=== PATIENT | female | born 1960 | race Caucasian/White ===

== ENCOUNTER → 2023-04-01 12:18 | Outpatient (REF) | payer OTHER, SELFPAY | LOC: RAD 12:18 | PROVIDERS: ATTENDING PHYSICIAN Physician Assistant | DX: S69.91XA Unspecified injury of right wrist, hand and finger(s), initial encounter (principal) | CPT/HCPCS: 73140 ==

== ENCOUNTER → 2023-06-17 07:56 | Outpatient (REF) | payer OTHER, SELFPAY | LOC: RAD 07:56 | PROVIDERS: ATTENDING PHYSICIAN Otolaryngology; FAMILY PHYSICIAN Family Medicine | DX: J34.2 Deviated nasal septum (principal); J32.2 Chronic ethmoidal sinusitis | CPT/HCPCS: 70486 ==

== ENCOUNTER → 2023-07-22 11:11 | Outpatient (REF) | payer OTHER, SELFPAY | LOC: DHCBC/DCA 11:11 | PROVIDERS: ATTENDING PHYSICIAN Internal Medicine Cardiovascular Disease; FAMILY PHYSICIAN Family Medicine | DX: R06.09 Other forms of dyspnea (principal) | CPT/HCPCS: 78452; 93017; A9500; J2785 ==

== ENCOUNTER → 2023-07-28 07:16 | Outpatient (REF) | payer OTHER, SELFPAY | LOC: HWRCS 07:16 | PROVIDERS: ATTENDING PHYSICIAN Internal Medicine Cardiovascular Disease; FAMILY PHYSICIAN Family Medicine | DX: R06.09 Other forms of dyspnea (principal); I37.0 Nonrheumatic pulmonary valve stenosis; I37.1 Nonrheumatic pulmonary valve insufficiency; I36.1 Nonrheumatic tricuspid (valve) insufficiency | CPT/HCPCS: 93306 ==

== ENCOUNTER → 2023-08-10 07:54 | Day surgery (SDC) | payer OTHER, SELFPAY ==
[2023-07-29 06:50] VITALS: BMI 30.9
--- NOTE | 2023-07-29 07:40 | HPS.HSE ---
Family Physician
<Marii Zhao PA-C - Last Filed: 07/29/23 08:03>
-
Family Physician: NO INTERVIEW UNKNOWN
Chief Complaint
<Marii Zhao PA-C - Last Filed: 07/29/23 08:03>
-
Abnormal nuclear stress test. Dyspnea on exertion. Palpitations.
History of Present Illness
The patient is a 63 year old female presenting today for new onset dyspnea on exertion, palpitations, and central chest pressure. She notes that these symptoms have been ongoing over the past few months and only occur with exertion, such
as walking long distances or biking. A pharmacologic stress test was ordered to evaluate for potential ischemia. Her nuclear stress test on 07/22/2023 revealed a small area of moderate decreased perfusion in the apical lateral segment, consistent
with ischemia, and a small to moderate area of moderately decreased perfusion that is partially reversible in the mid to basal inferolateral segment, consistent with possible area of infarct and ischemia. Her ejection fraction was also noted to be
moderately reduced at 43%. Given this result, it is recommended she proceed with a right and left cardiac catheterization for further symptom work-up. She denies any current complaints today such as chest pain or shortness of breath at rest, nausea,
vomiting, diarrhea, lightheadedness, dizziness, cough, sore throat, or fever.
Medical History
<Marii Zhao PA-C - Last Filed: 07/29/23 08:03>
Past Medical History
Past Medical History: Reports Other
Additional Past Medical History:
1. Abnormal nuclear stress test.
2. Dyspnea on exertion with associated central chest pressure.
3. Palpitations.
4. Hyperlipidemia.
5. Paroxysmal atrial tachycardia.
6. Sinus bradycardia, asymptomatic.
7. Pulmonic stenosis and atrial septal defect, status post childhood repair.
8. Severe tricuspid regurgitation.
9. Mild pulmonic regurgitation.
10. Venous varicosities, status post ablation of right greater saphenous vein.
11. Colon polyp.
12. Diverticulosis.
13. Osteoarthritis, status post right total knee arthroplasty, 2018, and left total knee arthroplasty, 2019.
14. Chronic sinusitis.
15. Eczema, on Adbry.
16. Obesity, BMI 30.9.
17. Remote history of tobacco abuse.
Past Surgical History: Reports Other
Additional Past Surgical History:
1. Right total knee arthroplasty.
2. Left total knee arthroplasty.
3. Knee ligament repair.
4. Bilateral thumb joint replacements.
5. Ablation of right greater saphenous vein.
6. Colonoscopy x2.
Social History
Tobacco: Former Smoker (She is a former 'on again, off again' less than 1 pack per day cigarette smoker who quit tobacco altogether in 1999. )
Alcohol: Other (Social)
Living: Alone (in a 2 story home. )
Family History
Family History: Not pertinent
Allergies / Home Medications
Allergy/Medication List:
Home medications:
1. Aspirin 81 mg p.o. daily.
2. Cetirizine 10 mg p.o. at bedtime.
3. Fexofenadine 180 mg p.o. daily.
4. Ibuprofen 400-600 mg p.o. every 6 hours as needed.
5. Adbry 300 mg subcutaneous every 2 weeks.
Allergies: No known allergies.
Review of Systems
<Marii Zhao PA-C - Last Filed: 07/29/23 08:03>
-
A 12 point ROS was completed and negative except as noted: Yes
Physical Exam
<Marii Zhao PA-C - Last Filed: 07/29/23 08:03>
Vital Signs
Blood pressure 118/73. Heart rate 49. Respirations 18. Pulse ox 98% on room air.
Height 5 feet, 5 inches. Weight 84.3 kg. BMI 30.9.
Physical Exam
General: Well Developed, Well Nourished and No Apparent Distress
HEENT: NormoCephalic, Moist mucous membranes, Atraumatic and PERRLA
Respiratory: Clear
Cardiac: Bradycardia and Murmur
GI: Soft, Non Tender, Non Distended and Other (Obese. )
Musculoskeletal: No Edema and Normal Gait & Station
Skin: Warm, Dry and Other (Circular eczema lesions without drainage noted on bilateral lower extremities. )
Neuro: AO x 3 and Nonfocal/grossly intact
Laboratory Results
<Marii Zhao PA-C - Last Filed: 07/29/23 08:03>
-
EKG 07/29/2023: Sinus bradycardia. Cannot rule out anterior infarct, age undetermined. Prolonged QT.
Echocardiogram 07/28/2023: Normal left ventricular size, wall thickness and systolic function. LV ejection fraction is 55-60% by Ascencio's method of discs. Dilated RV with normal systolic function. Severely dilated right atrium. Severe tricuspid
regurgitation. Estimated pulmonary artery pressure at 58 mmHg. Assuming a right atrial pressure of 15 mmHg. Mild pulmonic regurgitation with a peak gradient of 10 mmHg. Compared to prior from November 13, 2021, tricuspid regurgitation is now
severe with estimated PASP of 58 mmHg. The patient is status post pulmonic stenosis and ASD repair as a child.
Impression/Plan
<Marii Zhao PA-C - Last Filed: 07/29/23 08:03>
-
IMPRESSION/PLAN:
1. Dyspnea on exertion, palpitations, and abnormal nuclear stress test: The patient is in need of a right and left cardiac catheterization with Dr. Migue Cooper on 08/10/2023. The benefits and risks of the procedure have been explained to the
patient. The patient understands these risks and wishes to proceed. She is aware to continue her daily baby Aspirin up to and including the morning of her procedure.
<Migue Cooper DO - Last Filed: 08/10/23 10:48>
-
IMPRESSION/PLAN:
1. Dyspnea on exertion, palpitations, and abnormal nuclear stress test: The patient is in need of a right and left cardiac catheterization with Dr. Migue Cooper on 08/10/2023. The benefits and risks of the procedure have been explained to the
patient. The patient understands these risks and wishes to proceed. She is aware to continue her daily baby Aspirin up to and including the morning of her procedure.
Attestation: I have seen and examined the patient. I can confirm Ms. Zhao's findings and I agree with her assessment and plan as documented.
63-year-old female with a history of ASD in pulmonic stenosis status post childhood repair. She has been evaluated as an outpatient for dyspnea on exertion and central chest pressure. Evaluation included an echocardiogram as well as a
pharmacologic SPECT. Echocardiogram shows dilated right ventricle with normal function and severely dilated right atrium with severe tricuspid regurgitation as well as some pulmonic disease. Her SPECT showed anterolateral ischemia. Given the
nebulous nature of her symptoms as well as multiple potential sources, the decision was made to proceed with right and left heart catheterization.
Risks and benefits of the procedure have been explained to the patient. Consent is signed and on the chart.
[2023-08-10] VITALS (10 sets, daily range): BP systolic 110–144; BP diastolic 71–95; BMI 29.6
[2023-08-10] MEDS: NSS 249 ML IV (08:47)
[2023-08-10] MEDS: NSS 1000 IV (12:33)
--- NOTE | 2023-08-10 15:19 | ITS.CL.CATH ---
Tag Writer - Catheterization
Cardiac Catheterization
Procedure Report:
CARDIAC CATHETERIZATION REPORT
Date of Procedure: 08/10/2023
Referring: Migue Cooper D.O.
Indication: Chest pressure, abnormal stress test, history of ASD/pulmonic stenosis repair as a child.
PROCEDURE:
1. Right heart catheterization.
2. Left heart catheterization.
3. Coronary angiography.
4. Pulmonic valve interrogation.
ACCESS:
6 Cymraes right radial artery.
5 Cymraes right antecubital vein.
CATHETERS:
1. 5 Cymraes balloon wedge.
2. 5 Cymraes JL 3.5.
3. 5 Cymraes JR4.
HEMODYNAMIC DATA
Weight (kg): 83.0
AO (s/d/x mmHg): 114/71/90
LV (s/x mmHg): 114/14
PCWP (a/v/x mmHg): 16/15/14
PA (s/d/x mmHg): 40//23
RV (s/x mmHg): 47/12
RA (a/v/x mmHg): /
SVC SvO2 (%): 63.8
PA SvO2 (%): 66.3
SaO2 (%): 92.7
Hbg (g/dL): 13.7
CO (L/min): 3.52
CI (L/min/m2): 1.82
TPG (mmHg): 9
PVR (Carrillo Units): 2.56
SVR (dynes*seconds*cm^-5): 1773
AVO2 Diff (Volume %): 4.92
AV gradient (x, mmHg): None.
AV area (cm2): Normal.
PV gradient (x, mmHg): 5
PV area (cm2): 1.90
LEFT VENTRICULOGRAPHY: Not performed.
CORONARY ANGIOGRAPHY
Dominance: Right.
Left Main: Normal size, bifurcating vessel. There is no coronary artery disease.
LAD: Normal size vessel giving rise to 1 large diagonal. 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 The distal LAD is supplied by retrograde left to left collaterals and is a
relatively small vessel, though likely underfilled given its chronic status.
Ramus: Congenitally absent.
Circumflex: Normal size, nondominant vessel giving rise to 2 obtuse marginals. OM1 is a small, vestigial vessel, less than 1 mm. OM 2 is a substantial vessel which subsequently bifurcates into 2 daughter branches and supplies the majority of the
inferolateral wall. There is a 70% lesion in the proximal margin of OM 2.
RCA: Large size, dominant vessel. There is a 90% lesion in the mid RCA. There is a 50% lesion in the middle third of the RPDA.
INTERVENTIONS
None
Closure Device: Vascular band for the right radial artery, manual pressure for the right antecubital vein.
Radiation dose (mGy): 392.28
DAP (cm2.Gy): 25.4268
Fluoroscopy time (minutes): 6.1
Sedation time (minutes): 15
CONCLUSIONS:
1. Right dominant circulation with a 90% lesion in the mid RCA, a 50% lesion in the mid third of the RPDA, a chronically totally occluded mid LAD and a 70% lesion in the proximal margin of OM 2.
2. History of ASD repair and pulmonic stenosis repair as a child with mild pulmonic stenosis.
3. Severe tricuspid regurgitation on echocardiogram.
4. Top normal to mildly elevated filling pressures (LVEDP = 14 mmHg, PCWP = 14 mmHg at 83.0 kg).
RECOMMENDATIONS:
1. Expectant management after cardiac catheterization via right radial/antecubital approach.
2. Limited weight bearing on the right wrist for one week.
3. Discussion with CT surgery regarding optimal revascularization strategy, especially given her concomitant RV enlargement and severe tricuspid valve regurgitation.
4. Outpatient transesophageal echocardiogram.
5. Cardiac MRI has been ordered.
6. Start metoprolol 25 mg daily.
7. Start atorvastatin 40 mg daily. Goal LDL <55.
8. Start aspirin 81 mg daily.
9. Start sublingual nitroglycerin as needed.
Copy to: Migue Cooper D.O., Jacinto Krueger M.D.
Migue Cooper DO, FACC, FACP
== END | disposition home or self-care (01) ==
LOC: CATH 07:54
PROVIDERS: ATTENDING PHYSICIAN Internal Medicine Cardiovascular Disease; FAMILY PHYSICIAN Family Medicine
DX: I25.10 Atherosclerotic heart disease of native coronary artery without angina pectoris (principal); I25.82 Chronic total occlusion of coronary artery; R07.89 Other chest pain; R06.09 Other forms of dyspnea; R00.2 Palpitations; E78.5 Hyperlipidemia, unspecified; I47.19 Other supraventricular tachycardia; R00.1 Bradycardia, unspecified; I07.1 Rheumatic tricuspid insufficiency; I08.8 Other rheumatic multiple valve diseases; Z98.890 Other specified postprocedural states; Z87.19 Personal history of other diseases of the digestive system; K57.90 Diverticulosis of intestine, part unspecified, without perforation or abscess without bleeding; J32.9 Chronic sinusitis, unspecified; Z87.74 Personal history of (corrected) congenital malformations of heart and circulatory system; E66.9 Obesity, unspecified; Z68.30 Body mass index [BMI] 30.0-30.9, adult; R94.39 Abnormal result of other cardiovascular function study; Z96.653 Presence of artificial knee joint, bilateral; L30.9 Dermatitis, unspecified; Z87.891 Personal history of nicotine dependence; Z79.82 Long term (current) use of aspirin; M19.90 Unspecified osteoarthritis, unspecified site; I37.0 Nonrheumatic pulmonary valve stenosis
CPT/HCPCS: 93460; C1894; Q9967

== ENCOUNTER → 2023-08-16 12:54 | Outpatient (REF) | payer OTHER, SELFPAY | LOC: RSP 12:54 | PROVIDERS: ATTENDING PHYSICIAN Internal Medicine Cardiovascular Disease; FAMILY PHYSICIAN Family Medicine | DX: R06.09 Other forms of dyspnea (principal); Z87.891 Personal history of nicotine dependence | CPT/HCPCS: 94727; 94729; 88738; 94010 ==

== ENCOUNTER → 2023-08-23 07:21 | Outpatient (REF) | payer OTHER, SELFPAY | LOC: RAD 07:21 | PROVIDERS: FAMILY PHYSICIAN Family Medicine | DX: I25.10 Atherosclerotic heart disease of native coronary artery without angina pectoris (principal) | CPT/HCPCS: 71250 ==

== ENCOUNTER → 2023-10-21 11:44 | Outpatient (REF) | payer OTHER, SELFPAY | LOC: RAD 11:44 | PROVIDERS: ATTENDING PHYSICIAN Nurse Practitioner Acute Care; FAMILY PHYSICIAN Family Medicine; REFERRING PHYSICIAN Internal Medicine Cardiovascular Disease | DX: Z95.1 Presence of aortocoronary bypass graft (principal) | CPT/HCPCS: 71046 ==

== ENCOUNTER → 2023-10-28 10:11 | Outpatient (REF) | payer OTHER, SELFPAY ==
[2023-10-28 10:37] VITALS: BP 128/86; BP_SYST 67
[2023-10-28 11:30] VITALS: BP 109/66; BP_SYST 64
[2023-10-28 11:35] VITALS: BP 105/69; BP_SYST 63
[2023-10-28 11:49] VITALS: BP 105/69
== END ==
LOC: RADI 10:11
PROVIDERS: ATTENDING PHYSICIAN Internal Medicine Cardiovascular Disease; FAMILY PHYSICIAN Family Medicine
DX: J90 Pleural effusion, not elsewhere classified (principal)
CPT/HCPCS: 32555; 71045

== ENCOUNTER → 2023-11-04 11:27 | Outpatient (REF) | payer OTHER, SELFPAY ==
[2023-11-04 13:20] VITALS: BP 131/73; BP_SYST 60
[2023-11-04 14:15] VITALS: BP 96/62; BP_SYST 62
[2023-11-04 14:30] VITALS: BP 97/68; BP_SYST 60
[2023-11-04 14:45] VITALS: BP 112/64; BP_SYST 62
[2023-11-04 15:00] LABS: Body Fluid Albumin 2.2 g/dl; Body Fluid Hematocrit 0.3 %; Body Fluid LDH 355 U/L; Body Fluid Protein 3.6 g/dl; Body Fluid Triglycerides 32 mg/dl
[2023-11-04 15:14] LABS: Body Fluid WBC 840 /CUMM
[2023-11-04 15:16] LABS: Body Fluid Second Tech FB
[2023-11-04 15:20] VITALS: BP 112/64
== END ==
LOC: RADI 11:27
PROVIDERS: ATTENDING PHYSICIAN Internal Medicine Cardiovascular Disease; FAMILY PHYSICIAN Family Medicine
DX: J90 Pleural effusion, not elsewhere classified (principal); R06.02 Shortness of breath; J98.19 Other pulmonary collapse; J98.11 Atelectasis
CPT/HCPCS: 88305; 32555; 71046; 71260; 82042; 83615; 84157; 84478; 85014; 87015; 87070; 87102; 87116; 87205; 87206; 88112; 89051; Q9967

== ENCOUNTER → 2023-11-07 09:39 | Outpatient (REF) | payer OTHER, SELFPAY | LOC: RAD 09:39 | PROVIDERS: ATTENDING PHYSICIAN Internal Medicine Cardiovascular Disease; FAMILY PHYSICIAN Family Medicine | DX: R60.0 Localized edema (principal) | CPT/HCPCS: 93970 ==

== ENCOUNTER → 2023-11-29 07:56 | Outpatient (REF) | payer OTHER, SELFPAY | LOC: RAD 07:56 | PROVIDERS: ATTENDING PHYSICIAN Internal Medicine Cardiovascular Disease; FAMILY PHYSICIAN Family Medicine | DX: R06.09 Other forms of dyspnea (principal) | CPT/HCPCS: 71046 ==

== ENCOUNTER → 2023-12-01 13:09 | Outpatient (REF) | payer OTHER, SELFPAY ==
[2023-12-01 13:45] VITALS: BP 120/74; BP_SYST 56
[2023-12-01 15:22] LABS: Body Fluid Amylase 38 U/L; Body Fluid Glucose 107 mg/dl; Body Fluid LDH 187 U/L; Body Fluid Protein 4.1 g/dl
[2023-12-01 15:23] LABS: Body Fluid Hematocrit < 1.0 %; Body Fluid Mononuclear 96.1 %; Body Fluid Polymorphonuclear 3.9 %; Body Fluid WBC 717 /CUMM
[2023-12-01 15:24] LABS: Body Fluid Triglycerides < 30 mg/dl
[2023-12-01 15:40] LABS: Body Fluid Second Tech DW
== END ==
LOC: RADI 13:09
PROVIDERS: ATTENDING PHYSICIAN Internal Medicine Cardiovascular Disease; FAMILY PHYSICIAN Family Medicine
DX: J90 Pleural effusion, not elsewhere classified (principal)
CPT/HCPCS: 32555; 71045; 82150; 82945; 83615; 83986; 84157; 84478; 85014; 87015; 87070; 87102; 87116; 87205; 87206; 89051

== ENCOUNTER → 2023-12-20 12:07 | Outpatient (REF) | payer OTHER, SELFPAY | LOC: RAD 12:07 | PROVIDERS: ATTENDING PHYSICIAN Internal Medicine Cardiovascular Disease; FAMILY PHYSICIAN Family Medicine | DX: J90 Pleural effusion, not elsewhere classified (principal) | CPT/HCPCS: 71046 ==

== ENCOUNTER 2023-12-21 16:32 | Outpatient (RCR) | payer OTHER, SELFPAY | END 2023-12-21 23:59 | disposition home or self-care (01) | LOC: CRHB 16:32 | PROVIDERS: ATTENDING PHYSICIAN Internal Medicine Cardiovascular Disease; FAMILY PHYSICIAN Family Medicine | DX: I25.10 Atherosclerotic heart disease of native coronary artery without angina pectoris (principal); Z95.1 Presence of aortocoronary bypass graft; Z95.4 Presence of other heart-valve replacement | CPT/HCPCS: 93797; 93798 ==

== ENCOUNTER → 2024-01-04 07:17 | Outpatient (REF) | payer OTHER, SELFPAY | LOC: HWRCS 07:17 | PROVIDERS: ATTENDING PHYSICIAN Internal Medicine Cardiovascular Disease; FAMILY PHYSICIAN Family Medicine | DX: R06.09 Other forms of dyspnea (principal); I37.0 Nonrheumatic pulmonary valve stenosis; I37.1 Nonrheumatic pulmonary valve insufficiency; I36.1 Nonrheumatic tricuspid (valve) insufficiency; R00.2 Palpitations | CPT/HCPCS: 93306 ==

== ENCOUNTER 2024-01-16 16:28 | Outpatient (RCR) | payer OTHER, SELFPAY | END 2024-01-16 23:59 | disposition home or self-care (01) | LOC: CRHB 16:28 | PROVIDERS: ATTENDING PHYSICIAN Internal Medicine Cardiovascular Disease; FAMILY PHYSICIAN Family Medicine | DX: Z95.1 Presence of aortocoronary bypass graft (principal); Z95.4 Presence of other heart-valve replacement | CPT/HCPCS: 93797; 93798 ==

== ENCOUNTER → 2024-02-02 19:03 | Outpatient (REF) | payer OTHER, SELFPAY | LOC: WDC 19:03 | PROVIDERS: ATTENDING PHYSICIAN Obstetrics & Gynecology | DX: Z12.31 Encounter for screening mammogram for malignant neoplasm of breast (principal) | CPT/HCPCS: 77063; 77067 ==

== ENCOUNTER 2024-02-08 16:26 | Outpatient (RCR) | payer OTHER, SELFPAY ==
[2024-01-23 10:26] LABS: HDL Cholesterol 83 mg/dl; LDL Cholesterol, Calculated 59 mg/dl; Total Cholesterol 167 mg/dl (50-199); Triglyceride 126 mg/dl (10-149); Very Low Density Lipoprotein 25 mg/dl (0-30)
== END 2024-02-08 23:59 | disposition home or self-care (01) ==
LOC: CRHB 16:26
PROVIDERS: ATTENDING PHYSICIAN Internal Medicine Cardiovascular Disease; FAMILY PHYSICIAN Family Medicine
DX: Z95.1 Presence of aortocoronary bypass graft (principal); I25.10 Atherosclerotic heart disease of native coronary artery without angina pectoris (principal); Z95.4 Presence of other heart-valve replacement
CPT/HCPCS: 80061; 93797; 93798

== ENCOUNTER 2024-08-27 06:23 | Day surgery (SDC) | payer OTHER, SELFPAY ==
[2024-08-27] VITALS (7 sets, daily range): BP systolic 121–137; BP diastolic 65–76; BMI 29.1
[2024-08-27] MEDS: TYLENOL 1000 MG PO (12:45)
[2024-08-27] MEDS: HEPARIN 5000 UNITS SC (12:45)
[2024-08-27] MEDS: NORMOSOL-R/PLASMALYTE-A 1000 IV (12:46)
--- NOTE | 2024-08-27 16:23 | OR.RPT ---
Operative Report
Operative Report
Primary Surgeon: Nakul
Assisting: Efrem ORTIZ
Pre-op Diagnosis: Epigastric hernia
Post-op Diagnosis: Ventral incisional hernias x2
Procedure Performed: Robotic assisted laparoscopic repair ventral incisional hernias (rTAPP)
Anesthesia Type: GETA
Specimen / Cultures: None
Estimated Blood Loss: 25cc
Complications: None immediate
Operative Findings: 1.2cm x 1cm defect midline, 1cm fascial bridge, 1cm x1cm defect lateral to midline on the right; [total hernia size 3.2cm]; 10cm x 10cm bard soft mesh
Date of Surgery: 08/27/24
Indications: This 64F developed symptomatic epigastric hernia. Robot assisted laparoscopic repair was elected
Description of procedure:� The patient was taken to the operating room and positioned into supine position. The patient�s abdomen was prepped and draped in standard sterile fashion. A time-out was completed verifying correct patient, procedure,
site, positioning, and implants and special equipment prior to beginning this procedure. The hernia was marked on the abdominal wall using landmarks referenced from the imaging study. These corresponded to the chest tube incision sites.
A stab incision was made in the left upper quadrant, a Veress needle was inserted and proper position was confirmed by aspiration and saline drop test. Following this, pneumoperitoneum was created with insufflation of carbon dioxide to 12 mmHg. Then
a 8mm robotic trocar was inserted above and to the left of the umbilicus. A laparoscope was inserted and the area of initial trocar entry and Veress needle placement were both inspected and no injuries were found. Two 8mm trocars were then placed
lateral to the rectus sheath under direct visualization.
Attention was turned to the ventral defect. An incision was made in the peritoneum several cm superior to the defect and a flap was developed in caudad direction. The defect was identified and an addiitonal defect as well as as describe, defects
measured as above. The incarcerated fat was reduced and the defects were closed with 0 PDS stratafix suture. A 10cm x 10cm bard soft mesh was passed into the abdomen and placed into the preperitoneal space, flush against the abdominal wall and
centered on the defect. The mesh was secured in place with 3-0 vicryl suture under the defect and at all four corners. The peritoneal flap was then closed over the mesh and secured to the abdominal wall with 2-0 monocryl suture. A small rent in the
left upper quadrant of the flap was repaired with 2-0 monocryl stratafix suture. A 14g angiocath was used to decompress the preperitoneal space revealing good seal and all mesh in good position without folding or curling.
After ensuring adequate hemostasis, the trocars were removed and the pneumoperitoneum allowed to escape. The trocar incisions were closed at the skin level using 4-0 monocryl and topical skin adhesive. All counts were correct and the patient
tolerated the procedure well and was taken to the postanesthesia care unit in stable condition.
The assistance of Efrem ORTIZ was required due to the complexity of the procedure. During the procedure she assisted with retraction, resection, and closure of the wound.
== END 2024-08-27 18:04 | disposition home or self-care (01) ==
LOC: SDS 06:23
PROVIDERS: ATTENDING PHYSICIAN Surgery
DX: K43.6 Other and unspecified ventral hernia with obstruction, without gangrene (principal); K43.0 Incisional hernia with obstruction, without gangrene
CPT/HCPCS: 49593; C1781

== ENCOUNTER → 2025-02-07 10:53 | Outpatient (REF) | payer OTHER, SELFPAY | LOC: WDC 10:53 | PROVIDERS: ATTENDING PHYSICIAN Obstetrics & Gynecology; FAMILY PHYSICIAN Physician Assistant | DX: Z12.31 Encounter for screening mammogram for malignant neoplasm of breast (principal) | CPT/HCPCS: 77063; 77067 ==